=== PATIENT | female | born 1950 | race Caucasian/White ===

== ENCOUNTER 2017-01-14 11:56 | Emergency (ER) | payer MEDICARE ==
[2017-01-14 12:07] VITALS: BP 176/82; PULSE 65; RESP 18; TEMP 97.8
--- NOTE | 2017-01-14 13:23 | ED ---
ENT HPI - General Chief complaint: ENT Stated complaint: ear pain/[facility] Time Seen by Provider: 01/14/17 13:05 Source: patient, RN notes reviewed Mode of arrival: ambulatory Limitations: no limitations - History of Present Illness Initial comments: This a 66-year-old female presents emergency Department with chief complaint of left ear problems. She states over the last month or so she's been having symptoms of where her ear once a pop as she feels that she needs to the on her open up extra wide so she can clear her left ear. She states secondary to the congestion she has had intermittent dizziness. Patient states she has not had any dizziness a few days. Patient states she does have a history of vertigo. Patient had no prior ear surgeries. She states that she is here traveling in states that she is leaving tomorrow to go on a 60 day trip through [place]. Patient states that she went to urgent care center here secondary to her eardrum looking "blue". They told her at urgent care that she may have a mass in her ear. Patient states that she very seldomly gets pain in her ear. - Related Data Previous Rx's Medication Instructions Recorded Fluticasone Nasal [place] [Flonase 2 spr EA NOSTRIL DAILY #1 bottle 01/14/17 Nasal [place]] Loratadine 10 mg PO DAILY #30 tablet 01/14/17 methylPREDNISolone [Medrol Dose 4 mg PO DIRECTED #1 pack 01/14/17 Pack] Allergies Allergy/AdvReac Type Severity Reaction Status Date / Time No Known Allergies Allergy Verified 01/14/17 12:05 Review of Systems ROS Statement: Those systems with pertinent positive or pertinent negative responses have been documented in the HPI. ROS Other: All systems not noted in ROS Statement are negative. Past Medical History Past Medical History: No Reported History History of Any Multi-Drug Resistant Organisms: None Reported Additional Past Surgical History / Comment(s): carpel tunnel, ortho on foot and knee Past Psychological History: No Psychological Hx Reported Smoking Status: Never smoker Past Alcohol Use History: None Reported Past Drug Use History: None Reported General Exam Limitations: no limitations General appearance: alert, in no apparent distress Head exam: Present: atraumatic, normocephalic, normal inspection Eye exam: Present: normal appearance, PERRL, EOMI. Absent: scleral icterus, conjunctival injection, periorbital swelling ENT exam: Present: normal exam, normal oropharynx, mucous membranes moist, TM's normal bilaterally, normal external ear exam Neck exam: Present: normal inspection, full ROM. Absent: tenderness, meningismus, lymphadenopathy Respiratory exam: Present: normal lung sounds bilaterally. Absent: respiratory distress, wheezes, rales, rhonchi, stridor Cardiovascular Exam: Present: regular rate, normal rhythm, normal heart sounds. Absent: systolic murmur, diastolic murmur, rubs, gallop, clicks Neurological exam: Present: alert, oriented X3, CN II-XII intact Skin exam: Present: warm, dry, intact, normal color. Absent: rash Course Vital Signs 01/14/17 12:06 Temperature 97.8 F Pulse Rate 65 Respiratory 18 Rate Blood Pressure 176/82 O2 Sat by Pulse 100 Oximetry Medical Decision Making - Medical Decision Making 66-year-old female presented for left ureter problems. Patient's is describing symptoms consistent with eustachian tube dysfunction though she was sent from urgent care because he believed that she had a mass in her ear. I do not visualize any abnormality of her left ear other than the small amount of cerumen. Patient CT was ordered because patient was concerned and there is no acute abnormality's other than some mild narrowing of the right TMJ region. Patient will be started on antihistamines, Flonase and a steroid pack for station do dysfunction. Patient will follow-up with ENT if no improvement. Disposition Clinical Impression: Eustachian tube dysfunction Disposition: HOME SELF-CARE Condition: Stable Instructions: Earache (ED), Vertigo (ED) Additional Instructions: Please return to the Emergency Department if symptoms worsen or any other concerns. Prescriptions: Fluticasone Nasal [place] [Flonase Nasal [place]] 2 spr EA NOSTRIL DAILY #1 bottle Loratadine 10 mg PO DAILY #30 tablet methylPREDNISolone [Medrol Dose Pack] 4 mg PO DIRECTED #1 pack Referrals: None,Stated [REFERRING] - 1-2 days Time of Disposition: 13:58
--- NOTE | 2017-01-14 13:52 | CT ---
EXAMINATION TYPE: CT mastoid wo con DATE OF EXAM: 01/14/2017 COMPARISON: NONE HISTORY: Lt ear pain and fullness for couple of weeks. CT DLP: 150 mGycm. Automated Exposure Control for Dose Reduction was Utilized. TECHNIQUE: CT scan of internal auditory canal is performed without contrast, thin cut axial images ar e obtained, coronal reformatted images are also reviewed. FINDINGS: The external auditory canals are patent bilaterally. Mastoid air cells show no evidence of abnormal opacification bilaterally. The middle ear ossicles are symmetric and unremarkable. There is no evidence of suspicious surrounding soft tissue density to suggest cholesteatoma. The scutum is preserved bilaterally. The cochlea and the semicircular canals are symmetric and unremarkable. Ves tibular aqueduct and internal carotid canal appear unremarkable. There is slight asymmetric narrowing of right temporomandibular joint. Visualized paranasal sinuses a re grossly clear. Visualized portion brain parenchyma is felt within normal limits. IMPRESSION: No significant abnormality seen to account for patient's symptoms.
== END 2017-01-14 14:13 | disposition home or self-care (01) ==
LOC: EC 11:56
DX: H69.92 Unspecified Eustachian tube disorder, left ear (principal)
CPT/HCPCS: 70486; 99283